=== PATIENT | female | born 1940 | race Caucasian/White ===

== ENCOUNTER → 2018-05-26 11:56 | Outpatient (CLI) | payer MEDICARE, BC, SELFPAY ==
[2018-05-26 14:40] LABS: Carbon Dioxide 32 mmol/L (22-32); Chloride 97 mmol/L (98-107); HEMOLYSIS < 15 (0-50); Potassium 3.7 mmol/L (3.4-5.1); Sodium 142 mmol/L (137-145)
== END ==
PROVIDERS: Visit Provider Orthopaedic Surgery
DX: Z01.818 Encounter for other preprocedural examination (principal); Z01.812 Encounter for preprocedural laboratory examination
CPT/HCPCS: 36415; 80051

== ENCOUNTER → 2023-12-02 08:40 | Outpatient (CLI) | payer MEDICARE, BC, SELFPAY ==
--- NOTE | 2023-12-02 08:44 | DI.ECHO.S_ITS ---
[facility]---------+ [facility] +---------+ : : [address] : [place] [address] : : : : [id number] : : : : Phone: [phone]+ Echocardiogram Report + + :Name: ALICIA REYES Study Date: 12/02/2023 Height: 61 in : :[facility] ReadingLocation: Weight: 190 lb : : Gender: Female BSA: 1.8 m2 : :: 1940 Age: 83 yrs BP: 166/104 mmHg: :Reason For Study: Paroxysmal Atrial Fibrillation : :Ordering Physician: ROBERTA, : :ELLA Performed By: Magan Walker : :Referring: ELLA GRANADOS : + + Interpretation Summary Left ventricular ejection fraction is estimated to be 45 +/- 5%. Inferior and inferolateral hypokinesis There is mild mitral regurgitation. There is mild to moderate tricuspid regurgitation. The right ventricular systolic pressure is estimated to be at least 53 mmHg based on an estimated right atrial pressure of 3 mm Hg. Procedure: A two-dimensional transthoracic echocardiogram with color flow and Doppler was performed. The study quality was technically adequate. There is no prior echocardiogram noted for this patient. The patient was in atrial fibrillation with heart rates between 61-77 bpm during the exam. Left Ventricle: The left ventricle is normal in size and wall thickness. Left ventricular ejection fraction is estimated to be 45 +/- 5%. Inferior and inferolateral hypokinesis. Right Ventricle: The right ventricle is normal size. The right ventricular systolic function is normal. Atria: The left atrium is mildly dilated. Right atrial size is normal. Mitral Valve: The mitral valve is normal in structure and function. There is mild mitral annular calcification. There is no mitral valve stenosis. There is mild mitral regurgitation. Aortic Valve: The aortic valve is trileaflet. There is mild aortic valve sclerosis. There is no hemodynamically significant valvular aortic stenosis. No aortic regurgitation is present. Tricuspid Valve: The tricuspid valve is normal in structure and function. There is no tricuspid stenosis. There is mild to moderate tricuspid regurgitation. The right ventricular systolic pressure is estimated to be at least 53 mmHg based on an estimated right atrial pressure of 3 mm Hg. Pulmonic Valve: The pulmonic valve is normal in structure and function. There is no pulmonic valvular stenosis. There is a trace or physiologic amount of pulmonic regurgitation. Great Vessels: The aortic root is normal size. The dimensions of the ascending aorta are normal. The inferior vena cava appeared normal. Pericardium/ Pleura There is no pericardial effusion. There is no pleural effusion. MMode/2D Measurements & Calculations LVIDd: 4.7 cm LVOT diam: 1.8 cm LVIDs: 4.1 cm Ao root diam: 3.0 cm FS: 13.5 % asc Aorta Diam: 3.2 cm IVSd: 0.91 cm LVPWd: 1.0 cm LV carranza. diameter/BSA (cm/m^2): 2.6 LV sys. diameter/BSA (cm/m^2): 2.2 LA A2 area: 28.0 cm2 RA long axis: 5.7 cm LA A4 area: 25.6 cm2 RA area: 20.7 cm2 LA length (vol): 6.9 cm RA vol: 63.9 ml LA vol: 88.2 ml RA : 34.6 ml/m2 LA vol index: 47.7 ml/m2 IVC diam: 1.3 cm RVD1 (basal): 3.4 cm RVD2 (mid): 3.1 cm TAPSE: 2.6 cm Doppler Measurements & Calculations Ao V2 max: 158.0 cm/sec LVOT Max Michele: 120.9 cm/sec Ao V2 mean: 114.3 cm/sec LV V1 max P.8 mmHg Ao max P.0 mmHg LV V1 VTI: 30.9 cm Ao mean P.6 mmHg SHELLIE(I,D): 2.1 cm2 Ao V2 VTI: 38.5 cm SHELLIE(V,D): 2.0 cm2 sev ratio: 0.80 SHELLIE indexed to BSA (cm^2/m^2): 1.2 MV E max michele: 97.7 cm/sec TR max michele: 353.8 cm/sec MV A max michele: 90.9 cm/sec TR max P.5 mmHg MV E/A: 1.1 PA V2 max: 90.6 cm/sec Med Peak E' Michele: 6.4 cm/sec PA V2 mean: 64.9 cm/sec E/E' med: 15.2 PA mean P.8 mmHg Lat Peak E' Michele: 8.0 cm/sec PA pr(Accel): 31.0 mmHg E/E' lat: 12.2 E/e' average: 13.7 MV dec time: 0.26 sec SVLVOT): 81.9 ml Reading Physician:03:02 PM
== END ==
PROVIDERS: PCP Physician Assistant Medical; Referring Provider Physician Assistant Medical; Visit Provider Physician Assistant Medical
DX: I08.0 Rheumatic disorders of both mitral and aortic valves (principal); I48.0 Paroxysmal atrial fibrillation
CPT/HCPCS: 93306

== ENCOUNTER → 2023-12-08 13:25 | Outpatient (CLI) | payer MEDICARE, BC, SELFPAY ==
--- NOTE | 2023-12-10 02:35 | DI.NM.S_ITS ---
DATE OF SERVICE: 12/09/2023 PROCEDURE: Pharmacological perfusion study. INDICATION: Shortness of breath with underlying hypertension. RADIOPHARMACEUTICAL: 26.5 millicurie technetium-99m Myoview IV was injected at stress and 25.7 millicurie technetium-99m Myoview IV was injected at rest. CARDIAC STRESS: The patient underwent IV Lexiscan perfusion study under the supervision of an attending staff using standard IV Lexiscan as per protocol. The patient remained hemodynamically stable. Resting blood pressure of systolic 160 and diastolic 60. Baseline rhythm was sinus with frequent PACs as well as occasional PVCs. During stress, no convincing ischemic changes; however, patient however patient continued to have PACs with atrial bigeminy including atrial couplets, triplets, and rare multifocal PVCs in pairs. No sustained ventricular tachycardia. No obvious AFib. The patient had significant dyspnea with Lexiscan. No chest discomfort. No aminophylline needed. Recovered in recovery. RAW DATA: There is significant breast shadow seen. The patient's weight is 193. GATED STUDY: Stress LV ejection fraction 61% without any obvious wall motion abnormalities. Resting end-diastolic volume 97 mL. TID ratio 0.84, which is within normal limits. Lung/heart ratio 0.49, which is abnormal. MYOCARDIAL PERFUSION SCAN: Please note that this patient does not have any stress prone images. Stress supine and resting supine images were compared to each other. Resting supine images revealed small size, mildly decreased perfusion of distal anterior wall extending into the anteroapex and distal anterolateral wall. There is also mildly decreased perfusion of basal inferior lateral wall. During stress supine images, there is small to moderate size, mild to moderately decreased perfusion of distal anterior wall extending into the anteroapex and distal anterolateral wall and mildly decreased perfusion of basal inferolateral wall. There is minimal reversibility around distal anterior wall and anterior apex; however, summed stress score 6 and summed rest score 6 with summed difference score 0. CONCLUSION: There is a small to moderate-sized decreased perfusion of distal anterior wall extending into the anterior apex, distal anterior lateral wall, and basal inferolateral wall. Minimal reversibility. There are no stress prone images. Large breast shadow seen during raw images. Anterior wall, apex, and all the segments moving well. I do not see any obvious hypokinesis. LV function is preserved. There is a fair possibility that we are dealing with breast tissue attenuation artifact; however, one cannot rule out the possibility of a small myocardial infarction nontransmural affecting those areas. Baseline rhythm sinus. The patient has frequent PACs, occasional PVCs, which persisted during Lexiscan. The patient also has nonconducted PACs with Lexiscan. Correlate clinically. If pretest probability for CAD is high, consider other modality like CT coronary angiogram for further evaluation. Theo Rowena - RECRUITMENT SPECIALIST/fn/kt doc#: [id number]/job#: [id number] dd: 12/09/2023 16:49:00 dt: 12/10/2023 02:16:00 DICTATING MD/COPIES TO: Jose Miguel Ngo MD; Dr. Jenkins COPIES MNE: [id number]; ; Dr. Jenkins
== END ==
LOC: NUCM 13:25
PROVIDERS: PCP Physician Assistant Medical; Referring Provider Physician Assistant Medical; Visit Provider Physician Assistant Medical
DX: R06.09 Other forms of dyspnea (principal); R06.02 Shortness of breath; I10 Essential (primary) hypertension
CPT/HCPCS: 78452; 93017; A9502; J2785